=== PATIENT | female | born 1945 | race Caucasian/White ===

== ENCOUNTER 2020-07-01 10:15 | Day surgery (SDC) | payer MEDICARE, OTHER ==
[2020-06-29 10:49] LABS: COVID AG,FIA SOURCE NASOPHARYNGEAL
[~2020-07-01] VITALS: Ht 154.9 cm; Wt 68.6 kg
[2020-07-01] MEDS ORDERED: SODIUM CHLORIDE 0.9% 1,000 ML ONE (10:37)
[2020-07-01] MEDS ORDERED: SODIUM CHLORIDE 0.9% 1,000 ML IV ONE (11:00)
[2020-07-01] MEDS ORDERED: SPIR25 PO (11:21)
[2020-07-01] MEDS ORDERED: FURO20 PO (11:21)
[2020-07-01] MEDS ORDERED: NEBI5TAB2 PO (11:21)
[2020-07-01] MEDS ORDERED: FentaNYL CITRATE PF 100 MCG/2 ML VIAL ONE (12:05)
[2020-07-01] MEDS ORDERED: MIDAZOLAM HCL 5 MG/ML VIAL ONE (12:05)
== END 2020-07-01 14:10 | disposition home or self-care (01) ==
LOC: SURGERY 10:15
PROVIDERS: ATTEND Student in an Organized Health Care Education/Training Program
DX: K57.30 Diverticulosis of large intestine without perforation or abscess without bleeding (principal); K64.8 Other hemorrhoids; K64.4 Residual hemorrhoidal skin tags; K29.50 Unspecified chronic gastritis without bleeding; K31.89 Other diseases of stomach and duodenum; K63.89 Other specified diseases of intestine; I10 Essential (primary) hypertension; D50.9 Iron deficiency anemia, unspecified; Z98.890 Other specified postprocedural states
CPT/HCPCS: 43239; 45331; 87426; 88305; 88312; 88313; 99152; C9803; J2250; J3010; J7030